=== PATIENT | male | born 1975 | race Hispanic/Latino ===

== ENCOUNTER 2024-02-04 07:01 | Inpatient (IN) | payer OTHER ==
[2024-02-03 09:44] LABS: BASOPHILS # (AUTO) 0.03 K/uL (0.00-0.20); BASOPHILS % (AUTO) 0.7 % (0.0-5.0); EOSINOPHILS # (AUTO) 0.15 K/uL (0.00-0.70); EOSINOPHILS % (AUTO) 3.3 % (0.0-8.0); HEMATOCRIT 48.3 % (42-54); IMMATURE GRANULOCYTE ABSOLUTE 0.01 K/uL (0-1); LYMPHOCYTES % (AUTO) 42.8 % (21.0-51.0); MEAN CORPUSCULAR HEMOGLOBIN 29.6 pg (27.0-33.0); MEAN CORPUSCULAR HGB CONC 32.7 g/dL (32.0-36.0); MEAN CORPUSCULAR VOLUME 90.6 fL (79-99); MONOCYTES # (AUTO) 0.3 K/uL (0.1-1.0); MONOCYTES % (AUTO) 6.8 % (3.0-13.0); NEUTROPHILS # (AUTO) 2.1 K/uL (1.8-7.7); NEUTROPHILS % (AUTO) 46.2 % (40.0-77.0); PLATELET COUNT (AUTO) 230 K/uL (130-400); RED BLOOD CELL COUNT(AUTO) 5.33 MIL/uL (4.50-6.20); RED CELL DISTRIBUTION WIDTH 12.8 % (11.0-15.5); WHITE BLOOD COUNT (AUTO) 4.6 K/uL (4.8-10.8)
[2024-02-03 09:57] LABS: POTASSIUM 3.8 mmol/L (3.5-5.1)
[2024-02-03 10:19] VITALS: BP 153/85; PULSE 48; RESP 16; TEMP 99.1
[~2024-02-04] VITALS: Ht 175.3 cm; Wt 106.0 kg
[2024-02-04] VITALS (22 sets, daily range): BP systolic 139–171; BP diastolic 73–107; PULSE 53–96; RESP 15–20; TEMP 97.1–98.5; O2SAT 92
[~2024-02-04 07:01] MED LIST: BISA-151 PO; BUPR75TA8 PO; HYDR12.54 PO; LOSA100T59 PO; MONT-39 PO; PREG100C56 PO; RABE20TA30 PO
[2024-02-04] MEDS: ceFAZolin SODIUM 2 GM VIAL ONE (08:34)
[2024-02-04] MEDS: ceFAZolin SODIUM 1 GM VIAL ONE (08:34)
[2024-02-04] MEDS: LACTATED RINGERS 1000ML 1,000 ML IV ONE (08:34)
[2024-02-04] MEDS ORDERED: proPOFol 10 MG/ML 20ML VIAL IV ONE (09:52)
[2024-02-04] MEDS ORDERED: LIDOCAINE PF 100MG/5ML (2%) SYRINGE 5ML ONE (09:52)
[2024-02-04] MEDS ORDERED: MIDAZOLAM HCL 1 MG/ML 2ML VIAL ONE (09:53)
[2024-02-04] MEDS ORDERED: rocuRONium bROMide 10MG/1ML 5ML VL ONE (09:53)
[2024-02-04] MEDS ORDERED: FENTanyl CITRate PF 50 MCG/1 ML 5ML AMP IV ONE (09:53)
[2024-02-04] MEDS ORDERED: ePHEDrine SULFate 50 MG/ML AMPULE ONE (10:33)
[2024-02-04] MEDS: BUPIvacaine/PF 0.25% 30ML VIAL IJ ONE (10:37)
[2024-02-04] MEDS ORDERED: dexaMETHasone SOD PHOSPHATE 10MG/ML 1ML VIAL ONE (10:38)
[2024-02-04] MEDS ORDERED: ONDANSETRON 4MG INJ ONE (10:38)
[2024-02-04] MEDS ORDERED: metoCLOPRAmide 10 MG/2 ML VIAL ONE (10:39)
[2024-02-04] MEDS ORDERED: GLYCOPYRROLATE 0.2 MG/ML 5 ML VIAL ONE (11:25)
[2024-02-04] MEDS ORDERED: NEOSTIGMINE METHYLSULFATE 1MG/ML IV ONE (11:25)
[2024-02-04] MEDS ORDERED: ONDANSETRON 4MG INJ IVP PRN (12:00)
[2024-02-04] MEDS ORDERED: PROCHLORPERAZINE 10MG/2ML INJ IV PRN (12:00)
[2024-02-04] MEDS ORDERED: hydroMORPHone 0.5 MG SYG (0.5MG/0.5ML) IVP PRN (12:00)
[2024-02-04] MEDS: LACTATED RINGERS 1000ML 1,000 ML IV SCH (12:00)
[2024-02-04] MEDS ORDERED: ketOROlac 15MG/ML VIAL (15MG/ML) IV PRN (12:00)
[2024-02-04] MEDS: acetaMINOPHEN 1,000 MG/100 ML VIAL IV ONE (12:01)
[2024-02-04] MEDS: ENOXAPARIN SODIUM 40 MG/0.4 ML SYRINGE SQ SCH (13:00)
[2024-02-04] MEDS: PHARMACY COMMUNICATION MISC SCH (16:30)
[2024-02-04] MEDS ORDERED: monteLUKAST sodIUM 10 MG TAB PO PRN (16:30)
[2024-02-04] MEDS: HYDROcod/acetaMINOPHEN 7.5/325 MG 15 ML UDCUP PO PRN (17:00)
[2024-02-04] MEDS: hydrALAZine 20MG/ML VIAL IV PRN (20:44)
[2024-02-04] MEDS: FAMOTIDINE 20MG VIAL IV SCH (20:44)
[2024-02-04] MEDS: pregABALin 100 MG CAPSULE PO SCH (20:44)
[2024-02-05] VITALS: BP 146/94; PULSE 96; RESP 20; TEMP 98.4
[2024-02-05 04:00] VITALS: BP 166/98; PULSE 61; RESP 20; TEMP 98.3
[2024-02-05 08:00] VITALS: BP_SYST 121; BP_SYST 144; BP_DIAS 54; BP_DIAS 89; PULSE 83; PULSE 97; RESP 19; TEMP 97.2; TEMP 98.5; O2SAT 95
[2024-02-05] MEDS: BUPROPION HCL 75 MG PO SCH (09:00)
[2024-02-05] MEDS: LoSARTan 100 MG TABLET PO SCH (09:36)
[2024-02-05] MEDS: BisaCODYL 5 MG TABLET.DR PO SCH (09:36)
[2024-02-05] MEDS: PANTOPRAZOLE 40 MG TAB DR PO SCH (09:36)
[2024-02-05] MEDS: hydroCHLOROthiazide 25 MG TABLET PO SCH (09:37)
== END 2024-02-05 12:15 | disposition home or self-care (01) | DRG 328 ==
LOC: DAH 07:01 → DAHIP 07:02 → DAH 07:02 → 4BH 12:45
PROVIDERS: ADMIT Surgery; ATTEND Surgery
PROC: 0DJ08ZZ Inspection of Upper Intestinal Tract, Via Natural or Artificial Opening Endoscopic (ICD-10-PCS; 2024-02-04)
PROC: 8E0W0CZ Robotic Assisted Procedure of Trunk Region, Open Approach (ICD-10-PCS; 2024-02-04)
PROC: 0DV40ZZ Restriction of Esophagogastric Junction, Open Approach (ICD-10-PCS; principal; 2024-02-04 08:50)
PROC: 0BUT0JZ Supplement Diaphragm with Synthetic Substitute, Open Approach (ICD-10-PCS; 2024-02-04 08:50)
PROC: 5A09357 Assistance with Respiratory Ventilation, Less than 24 Consecutive Hours, Continuous Positive Airway Pressure (ICD-10-PCS; 2024-02-05)
DX: K44.9 Diaphragmatic hernia without obstruction or gangrene (principal); I10 Essential (primary) hypertension; K21.9 Gastro-esophageal reflux disease without esophagitis
CPT/HCPCS: 36415; 43235; 80048; 85025; 86850; 86900; 86901; 93005; G0378; J0360; J0690; J1100; J1650; J2001; J2250; J2405; J2704; J2710; J2765; J3010; J3490; J7120; A4215; A4221; A4222; A4223; A4600; A4663; A4930; A6260; C1781; G0168; J0665

== ENCOUNTER → 2025-02-22 | Outpatient (CLI) | payer OTHER ==
[~2025-02-22] MED LIST changes: +IOHEXOL 350 MG/ML 100ML INFUS..BTL IV ONE; -RABE20TA30 PO; +RABE20TA31 PO
--- NOTE | 2025-02-25 14:14 | CARDIOLOGY ---
RAD REPORT: CORNARY CT ANGIO RADIOLOGY REPORT: CORONARY CT ANGIOGRAPHY DATE: Feb 25, 2025 QUALITY: Excellent CLINICAL HISTORY AND INDICATION: [ chest pain ] TECHNIQUE: After obtaining a preliminary senior recruiter image, contrast imaging performed on an [employer] [id number] scanner. A dedicated, limited window, coronary imaging protocol was used, with single breath-hold, retrospective ECG gating, and automated arrhythmia rejection. 100 cc of low osmolar contrast agent: Omnipaque 350 was delivered via a 18-gauge IV catheter in the right antecubital fossa, using a power injector and followed by 60 cc of normal saline bolus as a chaser. Collimated images were reformatted at 0.5 mm intervals, and sent to an offline independent workstation for interpretation, using 3D anatomic reconstructions: Curved multiplanar reconstructions, maximum intensity projections, and multiplanar imaging. No metoprolol was administered prior to scanning due to low baseline heart rate. 0.8 mg SL nitroglycerin was given. CORONARY ARTERY DESCRIPTIONS: The coronary arteries arise in normal position. Left main coronary artery: Normal caliber vessel that bifurcates into the LAD and LCx. No stenosis. Left anterior descending coronary artery: Normal caliber vessel and gives rise to diagonal and septal branches. No stenosis. Left circumflex coronary artery: Normal caliber, nondominant and gives rise to two large OM branches. No stenosis. Right coronary artery: Large, dominant vessel giving rise to the PL and PDA branches. No stenosis. CAD-RADs: 0, absence of CAD. Thoracic Aorta: Normal diameter. Vaishali Malcolm MD Cardiovascular Disease [facility] VAISHALI MALCOLM MD Feb 25, 2025 14:14
== END | disposition home or self-care (01) ==
LOC: RAH 09:01
PROVIDERS: ATTEND Internal Medicine Cardiovascular Disease
DX: R07.9 Chest pain, unspecified (principal); I25.10 Atherosclerotic heart disease of native coronary artery without angina pectoris
CPT/HCPCS: 75574; Q9967